=== PATIENT | male | born 1985 | race American Indian/Alaskan Native ===

== ENCOUNTER 2017-07-01 09:27 | Outpatient (CLI) | payer BC ==
--- NOTE | 2017-07-01 14:03 | Ultrasound Report ---
ULTRASOUND RENAL BILATERAL HISTORY: Flank pain. TECHNIQUE: transabdominal ultrasound with color Doppler interrogation. FINDINGS: The right kidney measures 10.1 x 5.1 x 5.1cm. Right renal cortex: 1.5cm. The left kidney measures 11.7 x 5.1 x 5.5cm. Left renal cortex: 2.0cm. Both kidneys are normal size, contour and position. No evidence for renal mass, cystic disease, shadowing calculus or perinephric fluid. There is minimal separation of the echogenic complex within the left kidney which may represent minimal left hydronephrosis or urinary stasis. No right hydronephrosis. The bladder is filled with anechoic fluid and demonstrates no discrete abnormality. IMPRESSION: Minimal left hydronephrosis versus urinary stasis.
--- NOTE | 2017-07-02 07:16 | Vascular Lab Report ---
LOWER EXTREMITY VENOUS DUPLEX: REASON FOR EXAM: Swelling of the lower extremities. COMMENTS ON THE RIGHT: All veins visualized are freely compressible without evidence of internal echogenicity. Flow is spontaneous and phasic throughout. COMMENTS ON THE LEFT: All veins visualized are freely compressible without evidence of internal echogenicity. Flow is spontaneous and phasic throughout. IMPRESSION: No evidence of acute or chronic deep venous thrombosis in either lower extremity.
== END 2017-07-01 09:28 | disposition home or self-care (01) ==
LOC: US 09:27
PROVIDERS: ATTEND Family Medicine
DX: M79.89 Other specified soft tissue disorders (principal); R10.9 Unspecified abdominal pain
CPT/HCPCS: 76770; 93970